=== PATIENT | female | born 1950 | race Caucasian/White ===

== ENCOUNTER 2017-01-30 18:00 | Emergency (ER) | payer OTHER ==
--- NOTE | ~2017-01-30 | ER ---
PATIENT'S NAME: JACY MCKENNA [facility] AGE: 66 Y [address] ROOM: [place] [address] LOCATION: [facility] ADMIT DATE: 01/30/2017 ER/Outpatient Report DISCHARGE DATE: 01/30/2017 FAMILY PHYSICIAN: Jose Manuel Marks MD ATTENDING PHYSICIAN: Vladislav Scott Admission date and time documented on the medical record. I saw the patient at 1815 hours. CHIEF COMPLAINT: Left knee pain. HISTORY OF PRESENT ILLNESS: The patient is a 66-year-old female, walking through one of her rooms in her house, hit a metal machine directly with her left anterior knee in the patella area. She had pretty much instant golf ball-sized swelling over the patella, anterior knee. She walked in. She can bear weight. Quite painful. She did not twist the knee. Did not do not fall. No other injuries. HOME MEDICATIONS: See attached medication list. ALLERGIES: PENICILLIN, ERYTHROMYCIN, LEVAQUIN, DEMEROL, NSAIDS, OMEPRAZOLE, ADHESIVE TAPE, PREDNISONE. SOCIAL HISTORY: Nonsmoker, nondrinker. SIGNIFICANT PAST MEDICAL HISTORY: Bronchitis; asthma; hypothyroidism; zkb-nyzdvcf-ogkekmdfa diabetes mellitus; depression; anxiety; fibromyalgia; tremors; obstructive sleep apnea, on CPAP; exogenous obesity; chronic back pain; degenerative osteoarthritis; vertigo; allergic rhinitis; left plantar fasciitis. OPERATIONS: Hysterectomy, appendectomy, cholecystectomy, cardiac catheterization. REVIEW OF SYSTEMS: All systems reviewed by me are negative with the exception of those discussed in the history of present illness. PHYSICAL EXAMINATION: VITAL SIGNS: Temperature 98 tympanic, pulse 98, respirations 14, blood pressure 169/85, O2 saturation on room air is 95%. PATIENT'S NAME: JACY MCKENNA [facility] AGE: 66 Y [address] ROOM: [place], [place] [address] LOCATION: [facility] ADMIT DATE: 01/30/2017 ER/Outpatient Report DISCHARGE DATE: 01/30/2017 FAMILY PHYSICIAN: Jose Manuel Marks MD ATTENDING PHYSICIAN: Vladislav Scott EXTREMITIES: On examination of the left knee, the patient has a golf ball swelling, contusion, ecchymotic area. No skin tear or laceration or abrasion. Range of motion is slightly restricted. NEUROVASCULAR: Intact. Pulse intact. No muscular or other bony injury. IMAGING DATA: X-ray of the left knee showed no fracture of the patella, tibia, fibula, or femur. Joint line is intact. No dislocation. We will review x-ray with the radiologist. IMPRESSION: Contusion, left anterior knee, with a golf ball sized swelling, contusion. PLAN: The patient was given Toradol 60 mg IM in the emergency room for pain. Discharged home. Observation. Activity as tolerated. Ice and elevation intermittently as needed. Miqvc-te-rdehsp exercises of left knee. Continue present home medications and care. Weightbearing as tolerated. Follow up with personal physician as needed. Discussion ensued with the patient concerning my findings, recommendations, and she understands. MD BRIAN PAGE/modl /[id number] d: 01/30/17 2326 t: 01/31/17 1824, OUTPATIENT REPORT
[2017-02-27] MEDS ORDERED: KLONOPIN1 M1 PO (01:26)
[2017-02-27] MEDS ORDERED: LEVOTHROID (S112 MCG PO ×2 (01:28→02:29)
[2017-02-27] MEDS ORDERED: KLONOPIN1 MG PO (10:41)
[2017-02-27] MEDS ORDERED: NEURONTIN600 MG PO (10:42)
[2017-02-27] MEDS ORDERED: PRISTIQ50 MG PO (10:43)
[2017-02-27] MEDS ORDERED: MYSOLINE50 MG PO (10:44)
[2017-02-27] MEDS ORDERED: ADVAIR 250-501 EACH INH (10:46)
[2017-02-27] MEDS ORDERED: AMBIEN10 MG PO (10:47)
[2017-02-27] MEDS ORDERED: VICTOZA 2-0.6 MG/0.1 SUB-Q (10:53)
[2017-02-27] MEDS ORDERED: ARIPIPRAZOLE5 MG PO (10:54)
== END 2017-01-30 18:47 | disposition disaster alternative care site (69) ==
LOC: GACC 18:00
DX: S80.02XA Contusion of left knee, initial encounter (principal); E03.9 Hypothyroidism, unspecified; E11.9 Type 2 diabetes mellitus without complications; F32.9 Major depressive disorder, single episode, unspecified; F41.9 Anxiety disorder, unspecified; Z88.0 Allergy status to penicillin; Z88.1 Allergy status to other antibiotic agents; Z88.8 Allergy status to other drugs, medicaments and biological substances; Z90.49 Acquired absence of other specified parts of digestive tract; Z90.710 Acquired absence of both cervix and uterus; W31.9XXA Contact with unspecified machinery, initial encounter; Y92.009 Unspecified place in unspecified non-institutional (private) residence as the place of occurrence of the external cause
CPT/HCPCS: J1885

== ENCOUNTER → 2017-04-16 | Outpatient (CLI) | payer OTHER ==
[~2017-04-16] MED LIST: ADVAIR 250-501 EACH INH; AMBIEN10 MG PO; ARIPIPRAZOLE5 MG PO; KLONOPIN1 M1 PO; KLONOPIN1 MG PO; LEVOTHROID (S112 MCG PO; MYSOLINE50 MG PO; NEURONTIN600 MG PO; PRISTIQ50 MG PO; VICTOZA 2-0.6 MG/0.1 SUB-Q
== END | disposition disaster alternative care site (69) ==
LOC: GRAD 08:23
DX: M25.512 Pain in left shoulder (principal); S43.402A Unspecified sprain of left shoulder joint, initial encounter; X58.XXXD Exposure to other specified factors, subsequent encounter

== ENCOUNTER 2017-06-22 19:36 | Emergency (ER) | payer OTHER ==
--- NOTE | ~2017-06-22 | ER ---
PATIENT'S NAME: JACY MCKENNA [facility] AGE: 67 Y [address] ROOM: [place] [address] LOCATION: [facility] ADMIT DATE: 06/22/2017 ER/Outpatient Report DISCHARGE DATE: 06/22/2017 FAMILY PHYSICIAN: Physician, Unknown ATTENDING PHYSICIAN: Vladislav Scott CHIEF COMPLAINT: Injuries from ground level fall. TIME OF THE PATIENT ARRIVAL: 1935. TIME OF THE PATIENT EVALUATION: 1935. HISTORY OF PRESENT ILLNESS: This is a 67-year-old female, who presents to the ER via given ambulance crew. The patient suffered a ground-level fall in her home after she tripped over her 's cane. The patient states that she continued to lie on the ground because she felt nauseated. She states that she did hit her head. She did not lose consciousness, but she does feel nauseated. She states that she has neck and back pain from this fall, but she has chronic pain in her back and her neck always. She states that she hit her right elbow, so she is having pain there and she denies any other injury at this time. ALLERGIES: PENICILLIN, ERYTHROMYCIN, LEVAQUIN, DEMEROL, NSAIDS, OMEPRAZOLE, ADHESIVE TAPE, AND PREDNISONE. PAST MEDICAL HISTORY: Bronchitis; asthma; hypothyroidism; vhg-jfhhoma-fvpoxperf diabetes; depression; anxiety; fibromyalgia; tremors; obstructive sleep apnea, she does wear CPAP for that; obesity; chronic back and neck pain; vertigo; allergic rhinitis; and left plantar fasciitis. She also states she has a small airway. SOCIAL HISTORY: Denies smoking, drug, or alcohol use. REVIEW OF SYSTEMS: All systems were reviewed and negative with exception of those discussed in the HPI. PHYSICAL EXAMINATION: VITAL SIGNS: Weight 114.8 kg taken. Blood pressure 168/89, pulse 80, respirations 18, temperature 98 degrees orally, and saturations 93% on room PATIENT'S NAME: JACY MCKENNA [facility] AGE: 67 Y [address] ROOM: [place] [address] LOCATION: [facility] ADMIT DATE: 06/22/2017 ER/Outpatient Report DISCHARGE DATE: 06/22/2017 FAMILY PHYSICIAN: Physician, Unknown ATTENDING PHYSICIAN: Vladislav Scott air. [place] Coma Score is 15. GENERAL: Alert obese female, in no obvious distress. She is boarded and collared upon my examination. HEENT: Head is normocephalic. Eyes, pupils are equal and reactive to light. Ears, TMs display good light reflexes bilaterally. She does display moist mucous membranes. LUNGS: Clear to auscultation bilaterally. HEART: Regular rate and rhythm. EXTREMITIES: No clubbing or cyanosis. She does have good range of motion of all of her extremities except for she does complain of some pain in her right elbow with range of motion. MUSCULOSKELETAL: She has tenderness over her cervical, thoracic, and lumbar spine with palpation. SKIN: She has no open lacerations or cuts noted. LABORATORY DATA: None were done. CT scans of the head, C-spine, T-spine, and L-spine were done and were negative for any acute findings. X-rays of the right elbow showed no fracture. IMPRESSION: Head, neck, back, and right elbow pain secondary to ground level fall. ASSESSMENT AND PLAN: We did remove the patient from her collar and backboard once her CT scans were cleared. We did give her some nausea medication while she was here as well. I advised her to ice any sore areas. She needs to monitor her symptoms. She should take Tylenol as needed for pain and follow up with her primary care physician for followup care. The patient and the patient's daughter understand and agree with care. FRANCESCO SYKES PA-C FOR MD LAURI PAGE/abiel /[id number] d: t: 07/01/17 1250, OUTPATIENT REPORT
== END 2017-06-22 21:10 | disposition disaster alternative care site (69) ==
LOC: GACC 19:36
DX: R51 Headache (principal); M54.2 Cervicalgia; M54.5 Low back pain; M54.6 Pain in thoracic spine; M25.521 Pain in right elbow; J45.909 Unspecified asthma, uncomplicated; E03.9 Hypothyroidism, unspecified; E11.9 Type 2 diabetes mellitus without complications; F32.9 Major depressive disorder, single episode, unspecified; F41.9 Anxiety disorder, unspecified; G47.33 Obstructive sleep apnea (adult) (pediatric); E66.9 Obesity, unspecified; Z88.0 Allergy status to penicillin; Z88.1 Allergy status to other antibiotic agents; Z88.8 Allergy status to other drugs, medicaments and biological substances; Z88.6 Allergy status to analgesic agent; Z91.048 Other nonmedicinal substance allergy status; Z79.899 Other long term (current) drug therapy; W01.0XXA Fall on same level from slipping, tripping and stumbling without subsequent striking against object, initial encounter
CPT/HCPCS: J2405